=== PATIENT | male | born 1975 | race Caucasian/White ===

== ENCOUNTER 2019-04-17 09:02 | Emergency (ER) | payer OTHER ==
[~2019-04-17] VITALS: Ht 162.6 cm; Wt 81.6 kg
--- NOTE | 2019-04-17 09:03 | NUR ---
PT IN WHEELCHAIR TO ER BED 10
[2019-04-17 09:04] VITALS: BP 133/71
--- NOTE | 2019-04-17 09:13 | NUR ---
DR. LANCE EVALUATING PT AT BEDSIDE.
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
[2019-04-17] MEDS ORDERED: diphenhydrAMINE 50 MG/ML VIAL IVP ONE (09:20)
[2019-04-17] MEDS ORDERED: MORPHINE SULFATE 4 MG/ML SYR IVP ONE ×2 (09:20→09:55)
[2019-04-17] MEDS ORDERED: KETOROLAC 30 MG/ML VIAL IVP ONE (09:20)
[2019-04-17] MEDS ORDERED: ceFAZolin 1,000 MG VIAL ONE (09:23)
--- NOTE | 2019-04-17 09:36 | NUR ---
XRAY AT BEDSIDE.
--- NOTE | 2019-04-17 09:46 | NUR ---
DR. LANCE AT BEDSIDE RE-EVALUATING PT AFTER ALL PAIN MEDS WERE ADMINISTERED.
[2019-04-17] MEDS ORDERED: GENTAMICIN 120 MG in DEXTROSE 5% 100 ML IV ONE (10:05)
--- NOTE | 2019-04-17 10:08 | NUR ---
CALL FROM [facility] TRANSFER CENTER: DR VU ACCEPTING PATIENT TO [facility] EM[facility]ENCY [facility]PT. ER TO ER TRANSFER. REPORT # [phone].
[2019-04-17] MEDS ORDERED: GENTAMICIN 80 MG/2 ML VIAL ONE (10:12)
--- NOTE | 2019-04-17 10:18 | NUR ---
REPORT GIVEN TO GERARDO AT [facility].
--- NOTE | 2019-04-17 10:25 | NUR ---
2+ PEDAL AND RADIAL PULSES BILATERALLY.
--- NOTE | 2019-04-17 10:30 | NUR ---
EMT AT BEDSIDE FOR WOUND CARE.
--- NOTE | 2019-04-17 10:42 | NUR ---
SENSATION INTACT IN ALL FOUR EXTREMITIES. MOVEMENT PRESENT BUT LIMITED IN RT UPPER AND LOWER EXTREMITIES 2/2 PAIN.
--- NOTE | 2019-04-17 10:56 | NUR ---
DR. LANCE SPEAKING WITH PATIENT AT BEDSIDE.
--- NOTE | 2019-04-17 11:03 | NUR ---
[facility] STAFF AT BEDSIDE. REPORT GIVEN TO ARIANNA ([facility]).
--- NOTE | 2019-04-17 11:08 | NUR ---
APPLIED NON-ADHERENT DRESSING TO RIGHT LOWER LEG AND RIGHT HAND WITHOUT ANY ISSUES
--- NOTE | 2019-04-17 11:13 | NUR ---
PT TRANSFERRED OUT BY [facility].
[2019-04-17 11:33] VITALS: BP 121/55
== END 2019-04-17 11:10 | disposition short-term general hospital (02) ==
LOC: MED 09:02
DX: S61.411A Laceration without foreign body of right hand, initial encounter (principal); S81.811A Laceration without foreign body, right lower leg, initial encounter; W27.0XXA Contact with workbench tool, initial encounter; Y93.89 Activity, other specified; Y92.59 Other trade areas as the place of occurrence of the external cause; Y99.8 Other external cause status
CPT/HCPCS: 73130; 73590; 90471; 90715; 96365; 96367; 96375; 96376; 99285; J0690; J1200; J1580; J1885; J2270; Q0092